=== PATIENT | male | born 1950 | race Caucasian/White ===

== ENCOUNTER → 2018-11-19 14:24 | Outpatient (CLI) | payer MEDICARE, SELFPAY ==
--- NOTE | 2018-11-19 | DI.ECHO.S_ITS ---
[place] [facility]---------+ [facility] +---------+ : : [address] : [address] : : : : [id number] : : : : Phone: [phone]+ Echocardiogram Report + + :Name: ROBI BOX Study Date: 11/19/2018 Height: 66 in : :[facility] Exam Location: IS Weight: 240 lb : : Gender: Male BSA: 2.2 m2 : :: 1950 Age: 68 yrs BP: 155/85 mmHg: :Reason For Study: Abnormal ECG/ Hypertension : :Ordering Physician: TALISHA Edwards : :Yolanda Performed By: Flaca Page : + + Interpretation Summary The left ventricle is normal in size, wall thickness, and systolic function without any focal wall motion abnormalities. The ejection fraction is estimated to be 60-65%. The right ventricle is normal in size and function. No significant valvular pathology seen. The ascending aorta is mildly enlarged. Procedure: A two-dimensional transthoracic echocardiogram with color flow and Doppler was performed. The study quality was technically adequate. There is no prior echocardiogram noted for this patient. The patient was in normal sinus rhythm during the exam. Left Ventricle: The left ventricle is normal in size, wall thickness, and systolic function without any focal wall motion abnormalities. There is no thrombus. The ejection fraction is estimated to be 60-65%. Diastolic parameters suggest a relaxation abnormality of the left ventricle, consistent with probable normal filling pressures. Right Ventricle: The right ventricle is normal in size and function. Atria: Both atria are normal in size. There is no Doppler evidence for an interatrial shunt. Mitral Valve: There is mild mitral annular calcification. There is trace mitral regurgitation. Aortic Valve: The aortic valve is trileaflet. The aortic valve opens well. The aortic valve is slightly calcified. There is discrete nodular thickening of the right coronary cusp. No aortic regurgitation is present. Tricuspid Valve: The tricuspid valve is normal in structure and function. There is a trace or physiologic amount of tricuspid regurgitation. Pulmonary artery pressures cannot be estimated because of the lack of a measurable TR jet velocity. Pulmonic Valve: The pulmonic valve is not well visualized. There is a trace or physiologic amount of pulmonic regurgitation. Great Vessels: The aortic root is normal size. The ascending aorta is mildly enlarged. The aortic arch could not be visualized. The pulmonary is not well visualized. The IVC is of normal diameter and collapses greater than 50% with a sniff. This suggests a low right atrial pressure of 3 mm Hg. Pericardium/ Pleura There is no pericardial effusion. There is no pleural effusion. MMode/2D Measurements & Calculations LVIDd: 5.1 cm LVOT diam: 2.2 cm LVIDs: 2.9 cm Ao root diam: 3.3 cm FS: 44.0 % asc Aorta Diam: 3.6 cm EPSS: 0.96 cm IVSd: 0.86 cm LVPWd: 0.94 cm LV reardon. diameter/BSA (cm/m^2): 2.4 LV sys. diameter/BSA (cm/m^2): 1.3 LA A2 area: 23.9 cm2 RA long axis: 5.8 cm LA A4 area: 20.3 cm2 RA area: 14.8 cm2 LA length (vol): 6.9 cm RA vol: 32.0 ml LA vol: 59.7 ml RA : 14.8 ml/m2 LA vol index: 27.6 ml/m2 IVC diam: 2.1 cm RVD1 (basal): 3.3 cm TAPSE: 2.1 cm Doppler Measurements & Calculations Ao V2 max: 180.8 cm/sec LVOT Max Ba: 99.1 cm/sec Ao V2 mean: 117.5 cm/sec LV V1 max P.9 mmHg Ao max P.1 mmHg LV V1 VTI: 21.2 cm Ao mean P.3 mmHg MARCOS(I,D): 2.6 cm2 Ao V2 VTI: 31.3 cm MARCOS(V,D): 2.1 cm2 sev ratio: 0.68 MARCOS indexed to BSA (cm^2/m^2): 1.2 MV E max ba: 99.1 cm/sec PA V2 max: 86.4 cm/sec MV A max ba: 112.0 cm/sec PA V2 mean: 60.9 cm/sec MV E/A: 0.88 PA mean P.6 mmHg Med Peak E' Ba: 7.3 cm/sec PA Accel Time: 0.05 sec E/E' med: 13.6 Lat Peak E' Ba: 5.4 cm/sec E/E' lat: 18.5 E/e' average: 16.1 MV dec time: 0.24 sec MV P1/2t: 69.9 msec MV P1/2t max ba: 99.5 cm/sec SV(LVOT): 82.[address] [facility](P1/2t): 3.1 cm2 Reading Physician:KAYLYN
== END ==
PROVIDERS: Visit Provider Physician Assistant
DX: R94.31 Abnormal electrocardiogram [ECG] [EKG] (principal); I10 Essential (primary) hypertension
CPT/HCPCS: 93306